=== PATIENT | female | born 1990 | race African-American/Black ===

== ENCOUNTER 2019-10-07 00:49 | Emergency (ER) | payer SELFPAY ==
[2019-10-07] MEDS ORDERED: Lidocaine 1% w/Epinephrine 1:100K 20 ML VIAL ONE (01:29)
[2019-10-07] MEDS ORDERED: Bacitracin 1 PK ONE (02:32)
== END 2019-10-07 02:37 ==
LOC: ERS 00:49
DX: S61.412A Laceration without foreign body of left hand, initial encounter (principal); W01.110A Fall on same level from slipping, tripping and stumbling with subsequent striking against sharp glass, initial encounter
CPT/HCPCS: 12042